=== PATIENT | male | born 1970 ===

== ENCOUNTER 2018-09-20 02:03 | Emergency (ER) | payer SELFPAY ==
[2018-09-20] MEDS ORDERED: Sodium Chloride 0.9% 1,000 ML ONE (02:32)
[2018-09-20] MEDS ORDERED: Sodium Chloride 0.9% 1,000 ML IV ONE (02:40)
[2018-09-20 03:01] LABS: BASO # 0.1 K/uL (0.0-0.2); BASO % 1.1 % (0.0-2.0); EOS # 0.4 K/uL (0.0-0.7); EOS % 6.7 % (0.0-4.0); LYMPH # 1.4 K/uL (1.0-4.3); LYMPH % 24.2 % (20.0-40.0); MEAN CELL VOLUME 91.5 fL (80.0-94.0); MEAN CORPUSCULAR HEMOGLOBIN 31.7 pg (27.0-31.0); MEAN CORPUSCULAR HGB CONC 34.6 g/dL (33.0-37.0); MONO # 0.5 K/uL (0.0-0.8); MONO % 8.7 % (0.0-10.0); NEUT # 3.5 K/uL (1.8-7.0); NEUT % 59.3 % (50.0-75.0); RBC 5.05 Mil/uL (4.40-5.90); RED CELL DISTRIBUTION WIDTH 12.9 % (11.5-14.5); WHITE BLOOD COUNT 5.9 K/uL (4.8-10.8)
--- NOTE | 2018-09-20 03:03 | C.PDOC ---
History Of Present Illness 47 y/o male c/o epigastric pain since yesterday, along with nausea and vomiting. pt sts he took a motrin for the pain which made it worse. got worse again after pt tried eating some bread. Time Seen by Provider: 09/20/18 02:40 Chief Complaint (Nursing): Abdominal Pain History Per: Patient History/Exam Limitations: no limitations Onset/Duration Of Symptoms: Days (1) Current Symptoms Are (Timing): Still Present Context: Other (alcohol) Severity: Moderate Location Of Pain/Discomfort: Epigastric Radiation Of Pain To:: None Quality Of Discomfort: "Pain" Associated Symptoms: Nausea, Vomiting. denies: Fever, Chills, Back Pain Exacerbating Factors: Food, Other (motrin) Recent travel outside of the [place]: No Past Medical History Reviewed: Historical Data, Nursing Documentation, Vital Signs Vital Signs: Last Vital Signs Temp 98.2 F 09/20/18 02:11 Pulse 81 09/20/18 02:11 Resp 22 09/20/18 02:11 BP 162/101 H 09/20/18 02:11 Pulse Ox 99 09/20/18 02:11 Primary Care Provider: Maulik,Med Surg - Medical History PMH: Gastritis, Gastrointestinal Ulcer, HTN (takes enalapril) Surgical History: Cholecystectomy Family History: States: Unknown Family Hx - Social History Hx Alcohol Use: Yes (every weekend) Hx Substance Use: No - Immunization History Hx Tetanus Toxoid Vaccination: No Hx Influenza Vaccination: Yes Hx Pneumococcal Vaccination: No Review Of Systems Constitutional: Negative for: Fever, Chills Cardiovascular: Negative for: Chest Pain Respiratory: Negative for: Cough, Shortness of Breath Gastrointestinal: Positive for: Nausea, Vomiting, Abdominal Pain. Negative for: Diarrhea Genitourinary: Negative for: Dysuria Musculoskeletal: Negative for: Back Pain Skin: Negative for: Rash Neurological: Negative for: Weakness, Numbness Physical Exam - Physical Exam Appears: Non-toxic, No Acute Distress Skin: Warm, Dry Head: Atraumatic, Normacephalic Eye(s): bilateral: Normal Inspection Nose: No Discharge Neck: Supple Cardiovascular: Rhythm Regular Respiratory: No Decreased Breath Sounds, No Rales, No Rhonchi, No Wheezing Gastrointestinal/Abdominal: Bowel Sounds, Soft, Tenderness, No Distention, No Guarding, No Rebound Extremity: Normal ROM, No Tenderness, No Pedal Edema, No Swelling Neurological/Psych: Oriented x3, Normal Speech, Normal Cognition ED Course And Treatment - Laboratory Results Result Diagrams: 09/20/18 02:55 09/20/18 02:55 O2 Sat by Pulse Oximetry: 99 Medical Decision Making Medical Decision Making: hx gastritis with typicalo epigastric pain after drinking with vomiting. labs, ivf. pepcid. zofran re-eval 0349 pt resting comfortably. no distress;. labs normal. abdomen non tender,. 0518 pt resting,. no vomiting in ed. normal labs, d/c home with pepcid. Disposition Counseled Patient/Family Regarding: Studies Performed, Diagnosis, Need For F ollowup, Rx Given - Disposition Referrals: [facility] [Outside] [facility] [Outside] Disposition: HOME/ ROUTINE Disposition Time: : Condition: GOOD Additional Instructions: Vaya a un programa de desintoxicacin si necesita ayuda para dejar de beber. Sri pepcid dayana vez al da. Siguenos en la clnica mdica. [place] dayana dieta blanda. Go to a detox program if you need help to stop drinking. Take pepcid once a day. Follow u in medical clinic. Eat bland diet. Prescriptions: Famotidine [Pepcid] 20 mg PO DAILY #14 tab Instructions: Gastritis (DC), [place] Diet Forms: Gen Discharge Inst [place], [employer] (Eritrean) - Clinical Impression Clinical Impression: Epigastric abdominal pain
[2018-09-20 03:05] LABS: INR 1.1; PARTIAL THROMBOPLASTIN TIME 27.9 SECONDS (21-34); PROTHROMBIN TIME 12.5 SECONDS (9.7-12.2)
[2018-09-20 03:12] LABS: ALB/GLOB RATIO 1.2 (1.0-2.1); ALBUMIN 4.3 g/dL (3.5-5.0); ALT/SGPT 31 U/L (21-72); AST/SGOT 41 U/L (17-59); BLOOD UREA NITROGEN 15 mg/dL (9-20); CALCIUM 9.1 mg/dl (8.6-10.4); GFR NON-AFRICAN AMERICAN > 60; LIPASE 49 U/L (23-300)
[2018-09-20] MEDS ORDERED: Aluminum Hydroxide/Magnesium Hydroxide Susp (30 mL) PO STA (04:12)
[2018-09-20] MEDS ORDERED: Aluminum Hydroxide/Magnesium Hydroxide Susp (30 mL) ONE (04:35)
[2018-09-20 04:46] VITALS: BP 147/87; PULSE 87; RESP 18; TEMP 98.3
[2018-09-20 05:23] VITALS: O2SAT 99
== END 2018-09-20 05:33 | disposition home or self-care (01) ==
LOC: C.ER 02:03
DX: R10.13 Epigastric pain (principal); I10 Essential (primary) hypertension
CPT/HCPCS: 80053; 82948; 83690; 85025; 85610; 85730; 96361; 96374; 99284; J7030